=== PATIENT | male | born 1975 | race Caucasian/White ===

== ENCOUNTER 2021-07-09 09:34 | Outpatient (REF) | payer OTHER, SELFPAY ==
--- NOTE | 2021-07-09 14:48 | MHC.AU.AEV ---
Adult Audiological Evaluation Date of Visit: 07/09/21 Reason for Appointment: Audiological evaluation to determine baseline hearing prior to chemotherapy. Mr. 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 He notes that it is causing a lot of pain and swelling on that side of his face, with pain radiating up to his ear. He will soon be starting chemotherapy and his doctor recommended a baseline audiogram in order to monitor for ototoxicity, and to determine if the inflammation on his left side is causing any decrease to his hearing. Mr. Hassan denies any concerns for his hearing at this time. Does patient feel they have a hearing loss?: Unsure Has hearing been tested previously?: No Hearing Handicap Inventory HHIE SCORE: 4 Based on HHIE score, patient has: No perceived hearing handicap Ear History: Recent Ear Pain: Left Ear History of Ear Wax Buildup: Both Ears Bothersome Tinnitus/Ringing/Noises in Ears: Both Ears Medical History: Medical History: Headache, Tobacco Use Medical History: Gallbladder removal. Previous elicit drug use (not current). Medication List: Escitalopram, dexamethasone Otoscopy: Right Ear: Unremarkable Left Ear: Unremarkable Tympanometry: Tympanometry performed due to: To assess integrity of the middle ear system Right Ear: Normal Middle Ear System (Type A) Left Ear: Normal Middle Ear System (Type A) Otoacoustic Emissions Frequency Range Used: 1.6-8 kHz Right Ear Results: Present 9076-2621, reduced/absent 1446-5036 Hz. Analysis: Reduced/Absent emissions suggest cochlear dysfunction Left Ear Results: Present 1600,2000,3600,&4500. Reduced 1774-0020,4000,&5000-8000Hz Analysis: Reduced/Absent emissions suggest cochlear dysfunction Hearing Evaluation: Transducer(s) Used: Bone Conduction, High Frequency Headphones Method: Conventional Audiometry Stimuli Used: Pure Tones Right Ear: Description of Hearing: Normal hearing from 250-8000 Hz. Left Ear: Description of Hearing: Normal hearing from 250-8000 Hz. High Frequency Audiometry: High Frequency Audiometry: Tested 9000-24495 Hz. Right ear: Responses in the normal hearing range from 9000-49833 Hz [place] [address]. No responses at the limits of the audiometer from 83010-61215 Hz. Left ear: Responses in the normal hearing range at 9000 Hz, [place] [address]-00040, and in the moderately-[place] [address] Hz. No responses at the limits of the audiometer from 53578-43854 Hz. Speech Recognition Threshold (SRT): Method Used: Monitored Live Voice Stimuli Used: Spondee Words Right Ear: 10 dBHL Left Ear: 10 dBHL Word Discrimination: Method: Recorded Lists Word Lists Used:: NU-6 Right Ear: 100% at 50 dBHL Left Ear: 100% at 50 dBHL Recommendations: Given that Mr. Hassan will be undergoing chemotherapy, it is recommended that he return for an updated audiogram following each session of chemotherapy to monitor hearing for any effects of ototoxicity. Many chemotherapy drugs are known to be ototoxic and can lead to hearing loss. Mr. Hassan is still getting his care established with oncology providers and is not sure when he will be starting chemo. Diagnosis: Primary Diagnosis: H93.293 Abnormal Auditory Perception Services Performed: Comprehensive Audiological Evaluation (CPT 69375) Diagnostic Otoacoustic Emissions (CPT 64452, 26+TC) Tympanometry (CPT 96644) Signature: Provider: Racquel Castro, CCC-A
== END 2021-07-09 09:35 | disposition home or self-care (01) ==
LOC: HO.SH 09:34
PROVIDERS: Visit Provider Internal Medicine Hematology & Oncology
DX: H93.293 Other abnormal auditory perceptions, bilateral (principal)
CPT/HCPCS: 92557; 92567; 92588

== ENCOUNTER 2023-06-12 10:04 | Outpatient (AMB) | payer MEDICAID, SELFPAY ==
--- NOTE | 2023-06-12 10:07 | MHC.OFFVIS ---
Intake Vital Signs 06/12/23 10:19 Weight 234 lb BP 120/88 Blood Pressure Location Lt brachial Position Sitting Pulse 60 Pulse Source Pulse Oximeter Pulse Oximetry (%) 94 Oxygen Delivery Method Room Air Intake Visit Reasons: ENP-Headaches/Head-Neck Cancer Intake Note: NPV for Headaches in back of the neck Sports Medicine Physician Required: No Allergies No Known Allergies Allergy (Unverified 06/12/23 10:08) HPI HPI Comments History of Present Illness Details 48 y/o male patient presents for new in-person visit to manage headache. Pt reports occipital headache, it started about 2 months ago. The character of the headache is pounding headache with burning sensation, and it lasts couple of hours. The headache is also accompanied by dizziness, nausea and vomiting. The headache can be relieved with pressure. It happens randomly, no triggers. Pt has hx of stage 3 T3N3 oropharyngeal cancer, diagnosed in 05/2021. Pt finised radiation on 10/03/2021. He progressed with metastatic disease with lymphatic and bone metastases. The PET/CT on 02/04 showed recurrent disease in thoracic and abdominal nodes and in bone lesions. [facility] MRI done recently, but no result at this time. COUNTS INCLUDE 234 BEDS AT THE [facility] Medical History (Updated 06/12/23 @ 10:45 by Cristine Bacon CNP) FH: cholecystectomy Family History (Updated 06/12/23 @ 10:14 by Molly Horn [facility]) Father Diabetes Mother Diabetes Family/Other No problems noted. Social History (Updated 06/12/23 @ 10:19 by Molly Horn CMA) Alcohol intake: never Patient Tobacco Use Status: Former Tobacco user Substance Use Type: Marijuana Review of Systems Const All systems reviewed & are unremarkable except as noted in HPI and below ENT Reports Normal hearing present Neuro Reports Normal hearing present Physical Exam Vital Signs: Last Vital Signs Pulse 60 06/12/23 10:19 BP 120/88 06/12/23 10:19 Pulse Ox 94 06/12/23 10:19 Oxygen Delivery Method Room Air 06/12/23 10:19 Const General: cooperative Orientation/consciousness: patient oriented x3 Neck Other: suboccipital muscle tightness and pain. Neck muscle tightens. Neck: Yes full ROM and Yes supple Resp Effort & Inspection: normal respiratory effort and able to speak in complete sentences Neuro General: patient oriented x3, gait normal and moves all extremities Cranial nerves: Yes Normal facial strength present, Yes Midline tongue present, Yes Symmetric palate elevation present, Yes Normal hearing present, Yes Ability to bilaterally rotate head present and Yes Ability to bilaterally elevate shoulders present Cognition (Neuro): normal cognition Gait exam (Neuro): Normal gait present Motor exam (neuro): 5/5 motor strength present throughout, Pronator motor function not present and no tremor noted Psych Appearance: grossly normal Mental Status: mental status grossly normal Speech and movement: Normal speech and movement present Affect: normal affect Attitude: cooperative Assessment & Plan Assessment & Plan (1) Neck tightness: Code(s): R29.898 - Other symptoms and signs involving the musculoskeletal system (2) Occipital headache: Code(s): R51.9 - Headache, unspecified (3) Neck pain: Code(s): M54.2 - Cervicalgia Plan Advised patient to try physical therapy for neck tightness and pain. Advised patient to try magnesium 400 mg along with baclofen 5 mg qHS. Request brain MRI result. Orders: Orders PT Evaluation and Treatment 12 Days M54.2 - Cervicalgia, R29.898 - Other symptoms and signs involving the musculoskeletal system, R51.9 - Headache, unspecified Medications: New magnesium oxide 400 mg PO DAILY 30 days 30 tabs 3RF baclofen 5 mg PO BEDTIME 30 tabs 3RF Coding Level of Care Code New Pt Level 3 (35746) Diagnoses Neck tightness R29.898 Occipital headache R51.9 Neck pain M54.2
[2023-06-12 10:19] VITALS: BP 120/88; PULSE 60; O2SAT 94
== END 2023-06-12 10:49 | disposition home or self-care (01) ==
PROVIDERS: Visit Provider Nurse Practitioner Family
DX: R29.898 Other symptoms and signs involving the musculoskeletal system (principal); R51.9 Headache, unspecified; M54.2 Cervicalgia
CPT/HCPCS: 99203

== ENCOUNTER → 2023-06-12 10:04 | Outpatient (BNVA) | payer OTHER, SELFPAY | PROVIDERS: Visit Provider Nurse Practitioner Family | DX: R29.898 Other symptoms and signs involving the musculoskeletal system (principal); R51.9 Headache, unspecified; M54.2 Cervicalgia | CPT/HCPCS: 99212 ==

== ENCOUNTER 2023-10-27 10:29 | Outpatient (AMB) | payer OTHER, SELFPAY ==
--- NOTE | 2023-10-27 10:39 | A.OFFVIS_ITS ---
Intake Vital Signs 10/27/23 10:45 Height 5 ft 11 in Weight 231 lb 2 oz BMI 32.2 BP 124/72 Blood Pressure Location Lt brachial Position Sitting Pulse 62 Pulse Source Pulse Oximeter Pulse Oximetry (%) 98 Oxygen Delivery Method Room Air Intake Visit Reasons: Follow up - Conf Intake Note: Patient presents for F/U. still having neck and shoulder cramping/spasm. Allergies No Known Allergies Allergy (Verified 10/27/23 10:44) HPI HPI Comments History of Present Illness Details 48 y/o male patient presents for new in- person visit to manage headache. Pt reports he did not have physical therapy yet. He continues to have occipital headache. It happens few times a week. The nausea or dizziness is not associated with headache. Drinking water usually helps to reduce the headache. The character of the headache is pounding headache with burning sensation, and it lasts couple of hours. It happens randomly, no triggers. He did not start magnesium or physical therapy. He gets neck cramping when looking down. He is not sure it is related to radiation or not. He had radiation of his left neck, and having left side neck cramping. He takes baclofen 5mg, but not really helpful to relieve the cramping. Pt has hx of stage 3 T3N3 oropharyngeal cancer, diagnosed in 05/2021. Pt finised radiation on 10/03/2021. He progressed with metastatic disease with lymphatic and bone metastases. The PET/CT on 02/04 showed recurrent disease in thoracic and abdominal nodes and in bone lesions. [facility] Medical History (Updated 06/12/23 @ 10:45 by Cristine Bacon CNP) FH: cholecystectomy Family History Father Diabetes Mother Diabetes Family/Other No problems noted. Social History Alcohol intake: never Patient Tobacco Use Status: Former Tobacco user Substance Use Type: Marijuana Review of Systems Const All systems reviewed & are unremarkable except as noted in HPI and below ENT Reports Normal hearing present Neuro Reports Normal hearing present Physical Exam Vital Signs: Last Vital Signs Pulse 62 10/27/23 10:45 BP 124/72 10/27/23 10:45 Pulse Ox 98 10/27/23 10:45 Oxygen Delivery Method Room Air 10/27/23 10:45 BMI result Body Mass Index 32.2 Const General: cooperative Orientation/consciousness: patient oriented x3 Neck Other: suboccipital muscle tightness and pain. Neck muscle tightens. Neck: Yes full ROM and Yes supple Resp Effort & Inspection: normal respiratory effort and able to speak in complete sentences Neuro General: patient oriented x3, gait normal and moves all extremities Cranial nerves: Yes Normal facial strength present, Yes Midline tongue present, Yes Symmetric palate elevation present, Yes Normal hearing present, Yes Ability to bilaterally rotate head present and Yes Ability to bilaterally elevate shoulders present Cognition (Neuro): normal cognition Gait exam (Neuro): Normal gait present Motor exam (neuro): 5/5 motor strength present throughout, Pronator motor function not present and no tremor noted Psych Appearance: grossly normal Mental Status: mental status grossly normal Speech and movement: Normal speech and movement present Affect: normal affect Attitude: cooperative Assessment & Plan Assessment & Plan (1) Neck tightness: Code(s): R29.898 - Other symptoms and signs involving the musculoskeletal system (2) Occipital headache: Code(s): R51.9 - Headache, unspecified (3) Neck pain: Code(s): M54.2 - Cervicalgia Plan Advised patient to try physical therapy for neck tightness and pain. Advised patient to try magnesium 400 mg along with baclofen 5 mg qHS. Orders: Orders PT Evaluation and Treatment 10/27/23 M54.2 - Cervicalgia, R51.9 - Headache, unspecified Medications: Refilled baclofen 5 mg PO BEDTIME 30 tabs 3RF magnesium oxide 400 mg PO DAILY 30 tabs 3RF 30 days Coding Level of Care Code Est Pt Level 3 (35122) Diagnoses Neck tightness R29.898 Occipital headache R51.9 Neck pain M54.2
[2023-10-27 10:45] VITALS: BP 124/72; PULSE 62; O2SAT 98; BMI 32.2
== END 2023-10-27 11:01 | disposition home or self-care (01) ==
PROVIDERS: Visit Provider Nurse Practitioner Family
DX: R29.898 Other symptoms and signs involving the musculoskeletal system (principal); R51.9 Headache, unspecified; M54.2 Cervicalgia
CPT/HCPCS: 99213

== ENCOUNTER → 2023-10-27 10:29 | Outpatient (BNVA) | payer OTHER, SELFPAY | PROVIDERS: Visit Provider Nurse Practitioner Family | DX: R51.9 Headache, unspecified (principal); M54.2 Cervicalgia; R29.898 Other symptoms and signs involving the musculoskeletal system | CPT/HCPCS: 99212 ==